=== PATIENT | male | born 1950 | race Caucasian/White ===

== ENCOUNTER 2020-01-03 10:06 | Outpatient (CLI) | payer OTHER, SELFPAY ==
--- NOTE | ~2020-01-03 | US_ITS ---
EXAMINATION: US retroperitoneal comp EXAM DATE: 01/03/2020 10:44 INDICATION: Acute renal failure. TECHNIQUE: Multiple grayscale and Doppler images of the kidneys were obtained (by a technologist who performed the scan) and subsequently reviewed. There is no prior study for comparison. FINDINGS: Right kidney: There is normal contour and echogenicity. There is renal cortical thinning. It measures 9.9 x 5.0 x 5.5 centimeters. Anechoic lesion consistent with cyst measuring 2.4 cm. There is no hy dronephrosis. Left kidney: There is normal contour and echogenicity. There is renal cortical thinning. It measures 9.7 x 5.6 x 5.3 centimeters. There are no focal renal lesions identified. There is no hydronephros is. Trabecular bladder wall. IMPRESSION: 1. No hydronephrosis. 2. Bilateral renal cortical thinning, atrophy. 3. Bladder wall trabeculation, could indicate chronic cystitis. Reviewed, dictated and finalized at location A.
== END 2020-01-03 10:07 | disposition home or self-care (01) ==
PROVIDERS: PCP Internal Medicine; Visit Provider Internal Medicine
DX: N17.9 Acute kidney failure, unspecified (principal)
CPT/HCPCS: 76770

== ENCOUNTER 2020-09-14 14:30 | Emergency (ER) | payer OTHER, SELFPAY ==
--- NOTE | ~2020-09-14 | XR_ITS ---
EXAMINATION: XR hand RT 2V DATE: 09/14/2020 15:12 INDICATION: Right hand injury. Pain and swelling. TECHNIQUE: 2 views of right hand were obtained. COMPARISON: None. FINDINGS: Bone alignment is normal. There is a nondisplaced oblique fracture of second proximal phala nx with involvement of the proximal articular surface. There is diffuse osteopenia. There is mild ost eoarthritis of first carpometacarpal joint. IMPRESSION: 1. Nondisplaced fracture of second proximal phalanx. Reviewed, dictated and finalized at location B.
--- NOTE | ~2020-09-14 | XR_ITS ---
EXAMINATION: XR hand LT 2V DATE: 09/14/2020 15:11 INDICATION: Left hand injury to the fifth digit post fall TECHNIQUE: Posteroanterior and lateral views of the left hand were obtained. COMPARISON: None. FINDINGS: There appears to be loss of parallelism of the articular surfaces between the hamate and base of the fifth metacarpal which raises suspicion for traumatic subluxation/dislocation. Alignment is otherwise normal. No fracture. Minimal to mild osteoarthritis at the first carpometacarpal and distal interpha langeal joints. Soft tissue swelling about the base of the fifth metacarpal. IMPRESSION: 1. Suggestion of subluxation/dislocation at the fifth carpometacarpal joint. Consider either addition al oblique views or CT for more definitive determination. Reviewed, dictated and finalized at location A. IMPRESSION: 1. Suggestion of subluxation/dislocation at the fifth carpometacarpal joint. Co nsider either additional oblique views or CT for more definitive determination.
--- NOTE | ~2020-09-14 | CT_ITS ---
EXAMINATION: CT hand LT wo con DATE: 09/14/2020 16:31 INDICATION: Abnormal x-ray with pain at the fifth digit post fall. TECHNIQUE: High resolution computed tomography (CT) of the left hand was performed without intravenou s contrast. Additional sagittal and coronal reconstructions were performed. Automated exposure contro l and iterative reconstruction technique were employed. The dose-length product was 477.37 mGy-cm. COMPARISON: Radiographs dated 09/14/2020 FINDINGS: There is 5 mm palmar and ulnar subluxation of the base of the fifth metacarpal with respect to the kelley mate. There are couple minute bone fragments in the right and interval between the base of the fourth and fifth metatarsals most likely representing chip or avulsion fracture fragments which are too sma ll to determine a donor site. Bone alignment is otherwise normal throughout the remainder of the righ t hand. No other fractures identified. Mild osteoarthritis at the wrist, midcarpal, triscaphe, first carpometacarpal and several probably distal interphalangeal joints. There is secondary subarticular c ystic changes at the volar aspect of the scaphoid and scaphoid fossa of the radius. Additional mild l ikely degenerative cystic change at both sides of the first carpometacarpal joint. Extensive scattere d vascular calcifications. IMPRESSION: 1. Palmar/ulnar subluxation at the fifth carpometacarpal joint with a few minute avulsion versus chip fracture fragments of indeterminate origin at the resulting widened space between the bases of the f ourth and fifth metacarpals. Reviewed, dictated and finalized at location A. IMPRESSION: 1. Palmar/ulnar subluxation at the fifth carpometacarpal joint with a few minut e avulsion versus chip fracture fragments of indeterminate origin at the result ing widened space between the bases of the fourth and fifth metacarpals.
[2020-09-14 14:35] VITALS: BP 125/54; PULSE 45; RESP 20; TEMP 37.2; O2SAT 97
[2020-09-14] MEDS: TETANUS,DIPHTHERIA,AC PERTUSSIS ADULT 0.5 ML (ADACEL) IM (14:56)
--- NOTE | 2020-09-14 16:51 | ED.UPPEXIN ---
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 complaint: injury to: left, right and finger Other Extremity Injury: Bilateral: fingers ( index finger on the right and pinky on the left) Handedness: right Place: home Severity: mild Relieving factors: none Exacerbating factors: none Context: fall Related Data Home Medications Medication Instructions Recorded Confirmed escitalopram oxalate 10 mg PO DAILY 09/14/20 09/14/20 hydrocodone-acetaminophen 1 tablet PO BID 09/14/20 09/14/20 simvastatin 40 mg PO DAILY 09/14/20 09/14/20 trazodone 100 mg PO HS 09/14/20 09/14/20 Review of Systems Review of Systems: All systems reviewed & are unremarkable except as noted in HPI and below PMFSH Past Medical History Medical History History of CVA (cerebrovascular accident) Exam Const: General: no acute distress and alert Orientation/consciousness: patient oriented x3 HENMT: Head: normal to inspection Eyes: Conjunctivae: conjunctivae normal Pupils: Equal, round and reactive pupils present Neck: Neck: normal visual inspection, no lymphadenopathy and no meningeal signs Lymphatic: no lymphadenopathy noted Chest: Chest palpation & inspection: normal inspection of the chest Resp: Effort & Inspection: normal respiratory effort Cardio: Rate: regular rate Rhythm: regular rhythm GI: GI Palp: Yes Soft to palpation Percussion: Yes normal to percussion Back/Spine/Pelvis: Back: no CVA tenderness Skin: Other: avulsion and abrasions to bilateral hands fingers Neuro: General: patient oriented x3, moves all extremities and no meningeal signs Extrem: Other: left proximal 5th finger with abrasion and tenderness and this dislocation, and right index finger swollen and tender with some bruising Psych: Mental Status: mental status grossly normal Affect: normal affect Course Course Emergency Course: splint placed over the left hand and a splint over the right index finger, advised patient take Tylenol as needed and follow-up with his primary care physician. The left 5th finger was some reduced and CT scan was taken which shows a few chip fractures and patient is aware and advised follow-up with his primary care doctor. Vital Signs Vital signs: Vital Signs Temperature 37.2 C 09/14/20 14:35 Pulse Rate 45 L 09/14/20 14:35 Respiratory Rate 20 09/14/20 14:35 Blood Pressure 125/54 L 09/14/20 14:35 Pulse Oximetry 97 09/14/20 14:35 Temperature 37.2 C 09/14/20 14:35 Pulse Rate 45 L 09/14/20 14:35 Respiratory Rate 20 09/14/20 14:35 Blood Pressure 125/54 L 09/14/20 14:35 Pulse Oximetry 97 09/14/20 14:35 Critical Care Time Critical Care Time Critical Care Time: No Discharge Plan Discharge Clinical Impression: Dislocation of finger Qualifiers: Encounter type: initial encounter Qualified Code(s): S63.259A - Unspecified dislocation of unspecified finger, initial encounter Fracture of hand Qualifiers: Encounter type: initial encounter Fracture type: closed Laterality: left Qualified Code(s): S62.92XA - Unspecified fracture of left wrist and hand, initial encounter for closed fracture Patient Disposition: Home, Self-Care Condition: Stable Instructions: Antibiotic Form, Splint Care (ED), Finger Fracture (ED), Finger Dislocation (ED) Additional Instructions: follow-up with primary care physician within 1 week for further evaluation a
--- NOTE | 2020-09-14 17:02 | PC.NURSE ---
THIS WAS A VORB DR CHRISTIANSON
--- NOTE | 2020-09-14 17:02 | PC.NURSE ---
2 INCH OCL PLACED ON LEFT 5TH DIGIT AFTER ERIC TAPE AND BANDAID TO ABRASION. METAL FINGER SPLINT PLACED ON RIGHT INDEX FINGER AFTER BANDAID PLACEMENT TO ABRASION. GAUZE AND NEL PLACED TO RIGHT ELBOW ABRASION.
[2020-09-14 17:10] VITALS: RESP 16
== END 2020-09-14 17:10 | disposition home or self-care (01) ==
PROVIDERS: Emergency Provider Emergency Medicine; PCP Internal Medicine
DX: S62.640A Nondisplaced fracture of proximal phalanx of right index finger, initial encounter for closed fracture (principal); S63.052A Subluxation of other carpometacarpal joint of left hand, initial encounter; W19.XXXA Unspecified fall, initial encounter
CPT/HCPCS: 29125; 29130; 73120; 73200; 90471; 90715; 99283; 99284

== ENCOUNTER 2020-11-24 12:36 | Outpatient (CLI) | payer OTHER, SELFPAY ==
[2020-11-24 13:11] LABS: Hematocrit 38.6 % (37.0-46.0); Hemoglobin 12.3 g/dL (12.4-15.3); Mean Corpuscular HGB Conc 31.9 g/dL (32.0-36.0); Mean Corpuscular Hemoglobin 30.3 pg (27.0-31.0); Mean Corpuscular Volume 95.1 fL (78.0-102.0); Mean Platelet Volume 10.2 fl (8.7-11.0); Platelet Count Result 248 K/mm3 (150-420); Red Blood Count 4.06 M/mm3 (4.70-6.10); Red Cell Distribution Width 12.8 % (11.6-14.4); White Blood Count 10.2 K/mm3 (4.8-10.8)
[2020-11-24 13:33] LABS: Band Neutrophils Percent 0 % (0-6); Eosinophils Absolute Manual 0.91 K/mm3 (0.02-0.5); Eosinophils Percent Manual 9 % (1-6); Lymphocytes Absolute Manual 1.22 K/mm3 (1.1-4.5); Lymphocytes Percent Manual 12 % (18-44); Monocytes Absolute Manual 0.71 K/mm3 (0.1-0.90); Monocytes Percent Manual 7 % (3-9); Neutrophils Absolute Manual 7.34 K/mm3 (1.3-6.7); Neutrophils Percent Manual 72 % (46-73); Platelet Estimate Adequate (Adequate); Total Cells Counted 100
[2020-11-24 15:12] LABS: Albumin Level 3.4 g/dL (3.4-5.0); Anion Gap 11 mmol/L (8-16); Blood Urea Nitrogen 50 mg/dL (7-18); Calcium 8.9 mg/dL (8.5-10.1); Carbon Dioxide 25 mmol/L (21-32); Chloride 103 mmol/L (98-108); Estimated Glomerular Filt Rate 11; Glucose 167 mg/dL (70-99); Magnesium 1.9 mg/dL (1.8-2.4); Osmolality Calculated 305 mOsm/kg (285-295); Phosphorus 5.5 mg/dL (2.6-4.7); Potassium 5.4 mmol/L (3.5-5.1); Sodium 139 mmol/L (136-145)
[2020-11-26 12:39] LABS: Parathyroid Intact 244 pg/mL (14-64)
[2020-11-26 17:46] LABS: Vitamin D 25 Hydroxy 34 ng/mL (30-100)
== END 2020-11-24 12:37 | disposition home or self-care (01) ==
LOC: CHSLAB 12:40
PROVIDERS: PCP Internal Medicine
DX: N18.4 Chronic kidney disease, stage 4 (severe) (principal)
CPT/HCPCS: 36415; 80069; 82306; 83735; 83970; 85025

== ENCOUNTER 2021-03-25 10:15 | Outpatient (CLI) | payer OTHER, SELFPAY ==
--- NOTE | ~2021-03-25 | XR_ITS ---
XR chest 2V 03/25/2021 11:21 Indication: End-stage renal disease Procedure: 2 view chest Comparison: 06/01/2014 Findings: Status post median sternotomy. Borderline heart size. Mild interstitial edema. No significa nt effusion or pneumothorax. There is chronic granulomatous disease. Impression: 1: Borderline heart size with mild interstitial edema. Reviewed, dictated and finalized at location B. DUMPER Impression: 1: Borderline heart size with mild interstitial edema.
[2021-03-25 11:20] LABS: Albumin Level 3.7 g/dL (3.4-5.0); Anion Gap 13 mmol/L (8-16); Blood Urea Nitrogen 78 mg/dL (7-18); Calcium 8.5 mg/dL (8.5-10.1); Carbon Dioxide 23 mmol/L (21-32); Chloride 105 mmol/L (98-108); Estimated Glomerular Filt Rate 10; Glucose 116 mg/dL (70-99); Osmolality Calculated 316 mOsm/kg (285-295); Phosphorus 5.6 mg/dL (2.6-4.7); Potassium 5.5 mmol/L (3.5-5.1); Sodium 141 mmol/L (136-145)
[2021-03-28 01:07] LABS: Hepatitis B Core Antibody Nonreactive (Nonreactive); Hepatitis B Surface Antibody Nonreactive (Nonreactive); Hepatitis B Surface Antigen Nonreactive (Nonreactive)
== END 2021-03-25 10:16 | disposition home or self-care (01) ==
LOC: CHSLAB 10:21
PROVIDERS: PCP Internal Medicine
DX: N18.6 End stage renal disease (principal); Z49.01 Encounter for fitting and adjustment of extracorporeal dialysis catheter
CPT/HCPCS: 36415; 71046; 80069; 83735; 86705; 86706

== ENCOUNTER 2023-08-08 14:55 | Outpatient (CLI) | payer OTHER, SELFPAY | END 2023-08-08 14:56 | disposition home or self-care (01) | LOC: CHSLAB 14:58 | PROVIDERS: PCP Internal Medicine; Visit Provider Specialist | DX: C44.622 Squamous cell carcinoma of skin of right upper limb, including shoulder (principal) | CPT/HCPCS: 88305 ==